=== PATIENT | female | born 1995 | race African-American/Black ===

== ENCOUNTER 2021-09-23 14:42 | Outpatient (CLI) | payer OTHER ==
--- NOTE | 2021-09-23 17:25 | Ultrasound Report ---
PROCEDURE: OB Detailed Eval INDICATIONS: SUPERVISION OF OUTSIDE/PRIOR DATING DATA: Last menstrual period (LMP): 04/30/2021. LMP-based estimated date of delivery (TERRIE): 02/04/2022. First dating scan (date and location): 09/23/2021. Estimated date of delivery (TERRIE) from first dating scan: 01/31/2022. The below data below was generated using the ultrasound TERRIE of 01/31/2022 TECHNIQUE: Real-time scanning was performed of the fetus, with image documentation and biometric measurements. Endovaginal scanning: Performed COMPARISON: None. FINDINGS: General: A single living intrauterine gestation is present. Presentation: Variable Placenta: Placental position is posterior, without previa. Amniotic fluid index: 18.9 cm cm, 5-24 cm normal. heart rate: 144 beats per minute. Maternal cervical canal: Closed and 3.3 cm long; normal length is 2.5 cm or more. biometrics: Biparietal diameter: 21 weeks 4 days Head circumference: 21 weeks 1 day Abdominal circumference: 2 weeks 0 day Femur length: 21 weeks 4 day Estimated gestational age from initial scan: not applicable. Composite gestational age from present scan: 21 weeks 3 days Estimated weight: 445 g. Measurement variability in biometric dating: +/- 10 days from 12-20 weeks gestation, +/- 2 weeks from 20-30 weeks gestation, +/- 3 weeks at 30 weeks gestation or later. Anatomic survey: Neuro: Ventricles are normal at less than 10 mm. Cisterna magna is normal at 3-11 mm. Cerebellum i s normal in size and morphology. Nuchal skin fold: Normal at less than 6 mm between 14 and 20 weeks gestational age. Face: Nose and lips, facial profile are normal. Spine: No evidence for spina bifida. Heart: 4-chambered heart is present, with normal ventricular outflow tracts. Diaphragm: Diaphragm is intact. Stomach: Left-sided stomach is present. Kidneys: No hydronephrosis. Normal is less than 5 mm in 2nd trimester, less than 7 mm in 3rd trimester. Cord: 3 vessel cord has orthotopic insertion. Bladder: Normal in size. Extremities: All 4 extremities are visualized. IMPRESSION: 1. Single living intrauterine with ultrasound estimated gestational age of 21 weeks 3 days. 2. Normal anatomic survey. Reviewed by: Rocio Redd MD, PhD on 09/23/2021 5:24 PM PDT Approved by: Rocio Redd MD, PhD on 09/23/2021 5:24 PM PDT Station ID: [id number]
== END 2021-09-23 14:43 | disposition home or self-care (01) ==
LOC: DI 14:42
PROVIDERS: ATTEND Obstetrics & Gynecology
DX: Z34.02 Encounter for supervision of normal first pregnancy, second trimester (principal)

== ENCOUNTER 2021-12-11 10:51 | Outpatient (CLI) | payer OTHER ==
[2021-12-11 11:05] VITALS: BP 121/59
[2021-12-11 11:32] LABS: BASOPHILS % (AUTO) 0.4 %; EOSINOPHILS # (AUTO) 0.2 10^3/uL (0.0-0.7); EOSINOPHILS % (AUTO) 1.9 %; HCT - HEMATOCRIT 34.3 % (37.0-47.0); HGB - HEMOGLOBIN 11.4 g/dL (12.0-16.0); LYMPHOCYTES # (AUTO) 1.9 10^3/uL (1.5-3.5); LYMPHOCYTES % (AUTO) 16.9 %; MEAN CORPUSCULAR HEMOGLOBIN 29.5 pg (27.0-31.0); MEAN CORPUSCULAR HGB CONC 33.2 g/dL (32.0-36.0); MEAN CORPUSCULAR VOLUME 88.9 fL (81.0-99.0); MEAN PLATELET VOLUME 10.3 fL (7.9-10.8); MONOCYTES # (AUTO) 0.9 10^3/uL (0.0-1.0); MONOCYTES % (AUTO) 8.1 %; NEUTROPHILS # (AUTO) 7.5 10^3/uL (1.5-6.6); NEUTROPHILS % (AUTO) 68.7 %; PLT - PLATELET COUNT 216 10^3/uL (130-450); RED BLOOD COUNT 3.86 10^6/uL (4.20-5.40); RED CELL DISTRIBUTION WIDTH 12.7 % (12.0-15.0); WHITE BLOOD COUNT 10.9 x10^3/uL (4.8-10.8)
[2021-12-11 12:28] LABS: BILIRUBIN,URINE NEGATIVE (NEGATIVE); GLUCOSE, URINE (UA) NEGATIVE (NEGATIVE); KETONES,URINE (UA) NEGATIVE (NEGATIVE); LEUKOCYTE ESTERASE, URINE NEGATIVE (NEGATIVE); NITRITE,URINE NEGATIVE (NEGATIVE); OCCULT BLOOD,URINE NEGATIVE (NEGATIVE); PROTEIN,URINE NEGATIVE (NEGATIVE); UROBILINOGEN,URINE 0.2 (NORMAL) E.U./dL (NORMAL)
[2021-12-11 12:30] LABS: CLARITY,URINE CLEAR (CLEAR)
[2021-12-11 12:36] LABS: BACTERIA,URINE Few /HPF (None Seen); RBC,URINE 0-5 /HPF (0-5); SQUAMOUS EPITHELIAL CELL,UR FEW Squamous (<= Few); WBC,URINE 0-3 /HPF (0-5)
--- NOTE | 2021-12-12 14:51 | PROVIDER PROGRESS NOTE ---
- HPI Chief Complaint: Other Current : Current EDU 02/04/22 Gestation 32 Weeks and 1 Days 2 Para 0 Vital Signs Temperature 37.2 C 12/11/21 11:01 Heart Rate 104 H 12/11/21 11:01 Respiratory Rate 20 12/11/21 11:01 Blood Pressure 121/59 L 12/11/21 11:01 Temperature 37.2 C 12/11/21 11:01 Heart Rate 104 H 12/11/21 11:01 Respiratory Rate 12/11/21 11:01 Blood Pressure 121/59 L 12/11/21 11:01 O2 Saturation - Procedures OB Procedure Performed: NST Diagnosis/Indication for NST: Other NST Procedure: NST Procedure Start Date 12/11/21 Start Time 11:00 Stop Time 12:00 Vibroacoustic Stimulation Used No Patient States Movement Yes - Plan Plan: Pt evaluated face to face: Karly presents to [facility] with concerns for back pain, body aches, and hot flashes. She states she feels sore in her lower back and sits for prolonged periods of time at her job which seems to make the pain worse. She states it is sharp shooting and it caused her to call out of work today. In addition she reports intermittent body aches that are usually on the tops of her thighs bilaterally. She states these pains seem to come and go and are not constant. Reports they usually occur with position changes. She reports vomiting yesterday which has resolved. She called out of work yesterday and today and they told her she needed to go get checked out to make sure the baby was fine. She denies vaginal bleeding, leakage of fluid or contractions. She reports +FM. She denies fever. She denies urinary symptoms. She did have a recent COVID exposure. NST performed 12/11/2021 NST read 12/11/2021 FHR baseline 140s, moderate variability, + accels, no decels No contractions appreciated via tocometry UA neg CBC WNL Covid PCR neg Encouraged use of maternnity support belt daily. Recommended child care team lead, massage, or accupuncture/pressure Reviewed normal discomforts of . Reassured by normal labs. Encouraged her to ambulate regularly at work - note provided to allow ambulation every 30 minutes. Pt released home with precautions. She denies further questions or concerns today. FINAL DIAGNOSIS: Back pain in
== END 2021-12-11 12:20 | disposition home or self-care (01) ==
LOC: WFO 10:51 → FBP 10:53 → WFO 12:20
PROVIDERS: ATTEND Nurse Practitioner Obstetrics & Gynecology
DX: O99.891 Other specified diseases and conditions complicating pregnancy (principal); M54.9 Dorsalgia, unspecified; Z20.822 Contact with and (suspected) exposure to COVID-19; Z3A.32 32 weeks gestation of pregnancy
CPT/HCPCS: 36415; 59025; 81001; 85025; 99212

== ENCOUNTER 2022-02-04 20:24 | Inpatient (IN) | payer OTHER ==
[2022-02-04] MEDS ORDERED: OXYTOCIN 10 UNIT/ML VIAL IM PRN (21:53)
[2022-02-04] MEDS ORDERED: SODIUM CHLORIDE FLUSH 0.9% 10 ML SYRINGE IVP PRN (21:53)
[2022-02-04] MEDS ORDERED: miSOPROStoL 200 MCG TABLET PR PRN (21:53)
[2022-02-04] MEDS ORDERED: TRANEXAMIC ACID IN NACL 1,000 MG/100 ML BAG IV PRN (21:53)
[2022-02-04] MEDS ORDERED: miSOPROStoL 200 MCG TABLET BC PRN (21:53)
[2022-02-04] MEDS ORDERED: lidocaine 1% 20 ML MDV ID PRN (21:53)
[2022-02-04] MEDS ORDERED: NIFEdipine 10 MG CAPSULE PO PRN (21:53)
[2022-02-04] MEDS ORDERED: OXYTOCIN/SODIUM CHLORIDE 500 ML IV PRN (21:53)
[2022-02-04] MEDS ORDERED: METHYLERGONOVINE 0.2 MG/ML VIAL IM PRN (21:53)
[2022-02-04] MEDS ORDERED: hydrALAZINE INJ 20 MG/ML VIAL IVP PRN ×2 (21:53)
[2022-02-04] MEDS ORDERED: CARBOPROST TROMETHAMINE 250 MCG/ML AMP IM PRN (21:53)
[2022-02-04] MEDS ORDERED: TERBUTALINE 1 MG/ML VIAL SUBQ PRN (21:53)
[2022-02-04] MEDS ORDERED: fentaNYL 100 MCG/2 ML VIAL IVP PRN (21:53)
[2022-02-04] MEDS ORDERED: LABETALOL 20 MG/4 ML SYRINGE IVP PRN ×3 (21:53)
[2022-02-04] MEDS ORDERED: SODIUM CHLORIDE FLUSH 0.9% 10 ML SYRINGE IVP SCH (22:00)
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
[2022-02-04 22:21] LABS: BASOPHILS % (AUTO) 0.2 %; EOSINOPHILS # (AUTO) 0.2 10^3/uL (0.0-0.7); EOSINOPHILS % (AUTO) 1.2 %; HCT - HEMATOCRIT 35.8 % (37.0-47.0); HGB - HEMOGLOBIN 11.6 g/dL (12.0-16.0); LYMPHOCYTES # (AUTO) 1.5 10^3/uL (1.5-3.5); LYMPHOCYTES % (AUTO) 12.2 %; MEAN CORPUSCULAR HEMOGLOBIN 28.3 pg (27.0-31.0); MEAN CORPUSCULAR HGB CONC 32.4 g/dL (32.0-36.0); MEAN CORPUSCULAR VOLUME 87.3 fL (81.0-99.0); MEAN PLATELET VOLUME 11.2 fL (7.9-10.8); MONOCYTES # (AUTO) 1.1 10^3/uL (0.0-1.0); MONOCYTES % (AUTO) 8.9 %; NEUTROPHILS # (AUTO) 9.4 10^3/uL (1.5-6.6); NEUTROPHILS % (AUTO) 76.3 %; PLT - PLATELET COUNT 197 10^3/uL (130-450); RED CELL DISTRIBUTION WIDTH 13.9 % (12.0-15.0); WHITE BLOOD COUNT 12.3 x10^3/uL (4.8-10.8)
[2022-02-04 22:38] LABS: CREATININE,URINE 45.7 mg/dL; PROTEIN/CREATININE RATIO,URINE 0.2 (<=0.2)
[2022-02-04] MEDS ORDERED: LACTATED RINGERS 1,000 ML ONE (22:42)
[2022-02-04] MEDS ORDERED: LACTATED RINGERS 500 ML IV ONE (22:43)
[2022-02-04] MEDS ORDERED: ROPIVACAINE 0.2% 200 MG/100 ML BAG EP ONE (23:11)
[2022-02-04] MEDS ORDERED: NALOXONE 0.4 MG/ML VIAL IVP PRN (23:56)
[2022-02-04] MEDS ORDERED: METOCLOPRAMIDE 10 MG/2 ML VIAL IVP PRN (23:56)
[2022-02-04] MEDS ORDERED: diphenhydrAMINE INJ 50 MG/ML VIAL IVP PRN (23:56)
[2022-02-04] MEDS ORDERED: ePHEDrine 50 MG/ML VIAL IVP PRN (23:56)
[2022-02-04] MEDS ORDERED: NALBUPHINE 10 MG/ML AMP IVP PRN (23:56)
[2022-02-04] MEDS ORDERED: ROPIVACAINE 0.2% 200 MG/100 ML BAG EP PRN (23:56)
[2022-02-04] MEDS ORDERED: ONDANSETRON 4 MG/2 ML VIAL IVP PRN (23:56)
--- NOTE | 2022-02-05 00:03 | ANESTHESIA ---
Pre-Anesthesia VS, & Labs - Diagnosis active labor pain - Procedure labor epidural Vital Signs: Temp Pulse Resp BP Pulse Ox O2 Flow Rate 37.1 C 139 H 20 146/86 H 02/04/22 22:24 02/04/22 21:01 02/04/22 21:01 02/04/22 21:01 Height: 5 ft 5 in Weight (kg): 78.925 kg Body Mass Index: 28.9 BMI Classification: Overweight - NPO Other (eating upon arrival to preop pt at 2315) - Is Patient ?: Yes - Lab Results Current Lab Results: Laboratory Tests 02/04/22 22:00: Blood Type A POSITIVE, Antibody Screen NEGATIVE 02/04/22 22:00: WBC 12.3 H, RBC 4.10 L, Hgb 11.6 L, Hct 35.8 L, MCV 87.3, MCH 28.3, MCHC 32.4, RDW 13.9, Plt Count 197, MPV 11.2 H, Neut # (Auto) 9.4 H, Lymph # (Auto) 1.5, Holmes # (Auto) 1.1 H, Eos # (Auto) 0.2, Baso # (Auto) 0.0, Absolute Nucleated RBC 0.00, Nucleated RBC % 0.0 Fish Bones: 02/04/22 22:00 Home Medications and Allergies Active Medications Carboprost Tromethamine (Carboprost Tromethamine 250 Mcg/Ml Amp) 250 mcg IM .ONCE PRN PRN Reason: Hemorrhage Diphenhydramine HCl (Diphenhydramine Inj 50 Mg/Ml Vial) 12.5 - 25 mg IVP Q6HR PRN PRN Reason: ITCHING Ephedrine Sulfate (Ephedrine 50 Mg/Ml Vial) 5 mg IVP Q5M PRN PRN Reason: For SBP<100;give until SBP>100 Fentanyl (Fentanyl 100 Mcg/2 Ml Vial) 50 mcg IVP Q1H PRN PRN Reason: Severe Pain (score 7-10) Hydralazine HCl (Hydralazine Inj 20 Mg/Ml Vial) 5 - 10 mg IVP Q20M PRN; Protocol PRN Reason: SBP> or= 160 OR DBP> or= 110 Hydralazine HCl (Hydralazine Inj 20 Mg/Ml Vial) 10 mg IVP .ONCE PRN; Protocol PRN Reason: SBP> or= 160 OR DBP> or= 110 Oxytocin/Sodium Chloride (Pitocin/Sodium Chloride) 500 mls @ 999 mls/hr IV PRN PRN; Protocol PRN Reason: POST- HEMORR PREVENTION Tranexamic Acid (Tranexamic 1,000 Mg/100ml-Nacl) 1,000 mg in 100 mls @ 600 mls/hr IV Q30M PRN PRN Reason: EBL >1200mL and within 3hr Ropivacaine (Naropin 0.2%) 200 mg in 100 mls @ 0 mls/hr EP PRN PRN; Protocol PRN Reason: PAIN Labetalol HCl (Labetalol 20 Mg/4 Ml Syringe) 20 - 80 mg IVP Q10M PRN; Protocol PRN Reason: SBP> or= 160 OR DBP> or= 110 Labetalol HCl (Labetalol 20 Mg/4 Ml Syringe) 20 mg IVP .ONCE PRN; Protocol PRN Reason: SBP> or= 160 OR DBP> or= 110 Labetalol HCl (Labetalol 20 Mg/4 Ml Syringe) 20 - 40 mg IVP Q10M PRN; Protocol PRN Reason: SBP> or= 160 OR DBP> or= 110 Lidocaine HCl (Lidocaine 1% 20 Ml Mdv) 20 ml ID .ONCE PRN PRN Reason: PERINEAL REPAIR Stop: 02/07/22 21:53 Methylergonovine Maleate (Methylergonovine 0.2 Mg/Ml Vial) 0.2 mg IM .ONCE PRN PRN Reason: Hemorrhage Metoclopramide HCl (Metoclopramide 10 Mg/2 Ml Vial) 10 mg IVP Q6HR PRN PRN Reason: Nausea / Vomiting Misoprostol (Misoprostol 200 Mcg Tablet) 600 mcg BC .ONCE PRN PRN Reason: Hemorrhage Misoprostol (Misoprostol 200 Mcg Tablet) 800 mcg RI .ONCE PRN PRN Reason: Hemorrhage Nalbuphine HCl (Nalbuphine 10 Mg/Ml Amp) 2.5 - 5 mg IVP Q4H PRN PRN Reason: ITCHING Naloxone HCl (Naloxone 0.4 Mg/Ml Vial) 0.1 mg IVP Q2M PRN PRN Reason: RR<8 Nifedipine (Nifedipine 10 Mg Capsule) 10 - 20 mg PO Q20M PRN; Protocol PRN Reason: SBP> or= 160 OR DBP> or= 110 Ondansetron HCl (Ondansetron 4 Mg/2 Ml Vial) 4 mg IVP Q6HR PRN PRN Reason: Nausea / Vomiting Oxytocin (Oxytocin 10 Unit/Ml Vial) 10 unit IM .ONCE PRN PRN Reason: Step One if no IV access. Sodium Chloride (Sodium Chloride Flush 0.9% 10 Ml Syringe) 10 ml IVP PRN PRN PRN Reason: NEEDED PER PROVIDER ORDERS Sodium Chloride (Sodium Chloride Flush 0.9% 10 Ml Syringe) 10 ml IVP Q8H ELADIA Terbutaline Sulfate (Terbutaline 1 Mg/Ml Vial) 0.25 mg SUBQ .ONCE PRN PRN Reason: Tachystole Allergies/Adverse Reactions: Allergies Allergy/AdvReac Type Severity Reaction Status Date / Time No Known Drug Allergies Allergy Verified 12/11/21 11:05 Anes History & Medical History - Anesthetic History Anesthesia Complications: reports: No previous complications Family history of Anesthesia Complications: Denies Family history of Malignant Hyperthermia: Denies - Medical History Cardiovascular: reports: None Pulmonary: reports: None Gastrointestinal: reports: None Urinary: reports: None Neuro: reports: None Endocrine/Autoimmune: reports: None Blood Disorders: reports: None Skin: reports: None Smoking Status: Never smoker - Obstetrical History : 2 Parity: 0 Events: reports: None Complications: reports: None Exam General: Alert, Oriented x3, Cooperative Dental: WNL Mouth Openin Fingerbreadth Neck Mobility: Normal Mallampati classification: III Thyromental Distance: 4-6 cm Respiratory: Lungs clear Cardiovascular: Regular rate Plan Anesthesia Type: Epidural Consent for Procedure(s) Verified and Reviewed: Yes Code Status: Attempt Resuscitation ASA classification: 2-Mild systemic disease Is this case an emergency?: No
[2022-02-05 01:50] LABS: ALBUMIN 2.8 g/dL (3.2-5.5); ALBUMIN/GLOBULIN RATIO 0.8 (1.0-2.2); BILIRUBIN,TOTAL 0.7 mg/dL (0.2-1.0); CALCIUM 9.2 mg/dL (8.5-10.3); CREATININE 0.8 mg/dL (0.4-1.0); POTASSIUM 4.2 mmol/L (3.5-5.0); TOTAL PROTEIN 6.4 g/dL (6.7-8.2)
[2022-02-05] MEDS ORDERED: LACTATED RINGERS 1,000 ML ONE (03:46)
[2022-02-05] MEDS ORDERED: LACTATED RINGERS 1,000 ML IV SCH ×4 (03:48→10:00)
--- NOTE | 2022-02-05 04:24 | PROVIDER PROGRESS NOTE ---
Labor Progress Note - Uterine Monitoring Uterine Monitoring Mode: positive: External toco Contraction Frequency (min/apart): 2-5 Contraction Intensity: positive: Moderate Uterine Resting Tone: positive: Soft - Monitoring Monitor Mode: positive: External ultrasound Heart Rate Baseline: 140 Heart Rate Variability: positive: Moderate (6-25 bmp) Accelerations: positive: Absent Decelerations: positive: Late, Recurrent (>50% x20 min) Strip Review: positive: Category II - Vaginal Exam Dilation (in cm): 6 Effacement (%): 100 Station: -1 - Labor Progress Note Labor Progress Note/Additional Text: S: Pt comfortable with epidural and rating pain 0/10. She has been able to get very little rest secondary to need to move and rotate her with heart rate decelerations. She is supported by partner and 2 friends. Her mood is good. O: FHR baseline 145, moderate variability, no accels, recurrent late deceleratio ns Contractions palpate moderate every 2-5 minutes with soft resting tone. SVE 6/100/-1 (+scalp stimulation on exam) AROM moderate amount of lightly meconium stained amniotic fluid x 5 hrs S/p IV LR fluid bolus x 3 and maternal O2 A: 26yo @ 40.1wks gestation Active labor FHR Category II GBS neg P: We discussed risk vs benefit of continued labor efforts and my recommendation to decrease her rate of epidural infusion secondary to late heart rate decelerations that correspond to the programmed boluses of the epidural pump. We also discussed that if the decreased rate of infusion does not work to improve heart rate that I would contact the food operations manager physician who would evaluate the appropriateness of a delivery and pt is in agreement with that plan. Continuous monitoring Monitor x 30 minutes and if decelerations continue, will call food operations manager physician to evaluate for delivery.
[2022-02-05] MEDS ORDERED: OXYTOCIN 10 UNIT/ML VIAL ONE ×2 (07:39→08:56)
[2022-02-05] MEDS ORDERED: PHENYLEPHRINE 10 MG/ML VIAL ONE (07:42)
[2022-02-05] MEDS ORDERED: fentaNYL 100 MCG/2 ML VIAL ONE (07:55)
--- NOTE | 2022-02-05 07:55 | PROVIDER PROGRESS NOTE ---
Labor Progress Note - Uterine Monitoring Uterine Monitoring Mode: positive: External toco Contraction Frequency (min/apart): 2-6 Contraction Intensity: positive: Strong Uterine Resting Tone: positive: Soft - Monitoring Monitor Mode: positive: External ultrasound Heart Rate Baseline: 180 Heart Rate Variability: positive: Minimal (0-5 bpm) Accelerations: positive: Absent Decelerations: positive: Late, Recurrent (>50% x20 min) Strip Review: positive: Category III - Vaginal Exam Dilation (in cm): 6 Effacement (%): 100 Station: -1 - Labor Progress Note Labor Progress Note/Additional Text: S: Pt feeling comfortable with her epidural. Accepting of delivery as recommended. O: FHR baseline 180s with 37.9 temp Recurrent late decelerations with minimal variability Contractions palpate strong every 2-5 minutes with soft resting tone. SVE 5-6/100/-1 with caput to 0 A: 26yo @ 40.1wks gestation intolerance of labor GBS neg Light meconium since AROM P: yardage caller physician notified and presence requested for evaluate for delivery. Dr. Silva assuming care of patient at this time.
[2022-02-05] MEDS ORDERED: ePHEDrine 50 MG/ML VIAL IVP ONE (07:56)
[2022-02-05] MEDS ORDERED: MORPHINE PF 5 MG/10 ML VIAL ONE (07:57)
[2022-02-05] MEDS ORDERED: AZITHROMYCIN INJ 500 MG in SODIUM CHLORIDE 0.9% 250 ML IV SCH (08:00)
--- NOTE | 2022-02-05 08:04 | HISTORY & PHYSICAL EXAMINATION ---
Admit History - : 2 : 1 Care: positive: [facility] Risk/History: positive: None Complications This : positive: None Smoking Status: Never smoker - Other Maternal History Other Maternal History: HPI: 26-year-old -0-1-0 at 40 weeks 1 day gestation. She has been laboring overnight, but developed a worsening category 2 tracing. I was called by SAMEER Dolan to assess after she felt the patient likely need a section. All other symptoms reviewed and were negative except per HPI. Course Transfer care from [facility] to [facility]. [facility] 27 [facility]. PMH Depression PSH No prior surgeries OB History G2P 0010 1 previous spontaneous SH Denies tobacco, ago, drugs Family History Mother: Depression, hypertension Maternal aunt: Epilepsy Maternal grandmother: Hypertension Sisters: Hypertension Allergies No known drug allergies Medications vitamins Physical exam: General: Alert, oriented, no acute distress Head: Normal cephalic atraumatic Eyes: PERRLA, extraocular motions intact. Respiratory: Normal rate of respiration. No accessory muscle use, normal respiratory effort. Cardiovascular: Regular rate and rhythm Abdomen: Gravid, nontender, nondistended Extremities: Limited movement due to epidural Neuro: Oriented x3. Normal movements Psych: Appropriate mood and affect. Normal judgment and insight SVE: 5/90/-1 FHT: 180 beats minute baseline, moderate variability, no accelerations, late decelerations. Category 2 [place]pin: 2-5 Plan 26-year-old -0-1-0 at 40 weeks 1 day gestation with a category 2 tracing remote from delivery 1. Category 2 tracing remote from delivery - section was recommended. Risks, benefits and alternatives were discussed including but not limited to infection, bleeding that may require blood products or hysterectomy for life saving measures, injury to surrounding organs including but not limited to bowel, bladder, ureters, tubes and ovaries and/or the baby. Should injury occur it could require longer/additional surgery to repair. The patient stated understanding and desired to proceed. All questions were answered posed by patient. -Plan for primary low-transverse section -2 g cefazolin and 500 mg azithromycin for surgical prophylaxis 2. 40 weeks gestation Meds/Allgy - Allergies Allergies/Adverse Reactions: Allergies Allergy/AdvReac Type Severity Reaction Status Date / Time No Known Drug Allergies Allergy Verified 12/11/21 11:05 Physical - Abdominal Exam Vital Signs: Temp Pulse Resp BP Pulse Ox O2 Flow Rate 98.2 F 132 H 18 104/53 L 100 02/05/22 01:01 02/05/22 01:01 02/05/22 01:01 02/05/22 01:01 02/05/22 01:01 Plan for Labor - Plan For Labor I expect patient to be DC'd or transferred within 96 hours.: Yes
[2022-02-05] MEDS ORDERED: MORPHINE PF 5 MG/10 ML VIAL IT ONE (08:10)
[2022-02-05] MEDS ORDERED: fentaNYL 100 MCG/2 ML VIAL IT ONE (08:10)
[2022-02-05] MEDS ORDERED: ceFAZolin 1 GM VIAL ONE (08:15)
[2022-02-05] MEDS ORDERED: CEFAZOLIN 2G/50ML 0.9% NS 2 GM/50 ML BAG IV ONE (08:30)
[2022-02-05] MEDS ORDERED: ONDANSETRON 4 MG/2 ML VIAL ONE (08:49)
[2022-02-05] MEDS ORDERED: KETOROLAC 30 MG/ML VIAL ONE (08:50)
[2022-02-05] MEDS ORDERED: ONDANSETRON 4 MG/2 ML VIAL IVP PRN ×2 (08:51→08:52)
[2022-02-05] MEDS ORDERED: ATROPINE ABBOJECT 1 MG/10 ML SYRINGE IVP PRN (08:51)
[2022-02-05] MEDS ORDERED: NALOXONE 0.4 MG/ML VIAL IVP PRN ×2 (08:51→08:52)
[2022-02-05] MEDS ORDERED: METOCLOPRAMIDE 10 MG/2 ML VIAL IVP PRN ×2 (08:51→08:52)
[2022-02-05] MEDS ORDERED: fentaNYL 100 MCG/2 ML VIAL IVP PRN (08:51)
[2022-02-05] MEDS ORDERED: HYDROmorphone 0.5 MG/0.5 ML SYRINGE IVP PRN (08:51)
[2022-02-05] MEDS ORDERED: ePHEDrine 50 MG/ML VIAL IVP PRN ×2 (08:51→08:52)
[2022-02-05] MEDS ORDERED: MORPHINE 2 MG/ML CARPUJECT IVP PRN (08:51)
[2022-02-05] MEDS ORDERED: NALBUPHINE 10 MG/ML AMP IVP PRN (08:52)
[2022-02-05] MEDS ORDERED: diphenhydrAMINE INJ 50 MG/ML VIAL IVP PRN (08:52)
[2022-02-05] MEDS: KETOROLAC 30 MG/ML VIAL IVP SCH ×3 (09:00→21:19)
[2022-02-05] MEDS ORDERED: ACETAMINOPHEN 1,000 MG/100 ML 1,000 MG/100 ML BAG IV ONE (09:01)
[2022-02-05] MEDS ORDERED: LIDOCAINE-PF 2% 10 ML AMP SUBQ ONE (09:03)
[2022-02-05] MEDS ORDERED: ROPIVACAINE 0.5% PF 20 ML VIAL ONE (09:03)
[2022-02-05] MEDS ORDERED: LACTATED RINGERS 1,000 ML IV ONE (09:16)
[2022-02-05] MEDS ORDERED: OXYTOCIN/SODIUM CHLORIDE 500 ML IV PRN (09:26)
[2022-02-05] MEDS ORDERED: ONDANSETRON ODT 4 MG TABLET TL PRN (09:26)
--- NOTE | 2022-02-05 09:29 | OPERATIVE REPORT ---
Operative Report - General Admit Date: 02/04/22 Procedure Date: 02/05/22 Planned Procedure: Primary low-transverse section Pre-Op Diagnosis: Category 2 tracing remote from delivery, 40 weeks gestation Procedure Performed: Primary low-transverse section Post Op Diagnosis: Status post primary low-transverse section - Procedure Note Primary Surgeon: Maicol Silva MD Secondary Surgeon: SAMEER Dolan Anesthesia Provider: Marquez Mai CRNA Anesthesia Technique: Spinal Pathology: None Estimated Blood Loss (mL): 750 Complications: None - Other Other Information/Narrative: Patient came in in spontaneous labor, but throughout the evening began having late decelerations then tachycardia. I was asked by SAMEER Dolan to drug counselor the patient. Due to category 2 tracing remote from delivery, section was recommended. Risks, benefits and alternatives were discussed including but not limited to infection, bleeding that may require blood products or hysterectomy for life saving measures, injury to surrounding organs including but not limited to bowel, bladder, ureters, tubes and ovaries and/or the baby. S hould injury occur it could require longer/additional surgery to repair. The patient stated understanding and desired to proceed. All questions were answered posed by patient. Prior to being taken to the OR, 2 grams of cefazolin IV and 500 mg azithromycin were administered. The patient was taken to the operating room where regional anesthesia was found to be adequate. She was then prepared and draped in the usual sterile fashion in the dorsal supine position with a leftward tilt displacing the uterus. Benson was draining to gravity. SCDs were on bilateral lower extremities. A pfannenstiel skin incision was then made with the scalpel and carried through to the underlying layer of fascia. The fascia was incised in the midline and the incision extended laterally with the Hurtado scissors. The superior aspect of the facial incision was then grasped with the Jesse clamps, elevated and the underlying rectus muscles dissected off sharply. Attention was then turned to the inferior aspect of this incision which in a similar fashion was grasped, elevated with the Jesse clamps and the rectus muscle dissected off sharply. The rectus muscles were in the midline. The peritoneum identified, grasped with the pick-ups and entered sharply with the Metzenbaum scissors. The peritoneal incision was then extended superiorly and inferiorly with good visualization of the bladder. The bladder blade was inserted. The vesicouterine peritoneum was identified, grasped with the pick-ups, and entered sharply with Metzenbaum scissors. This incision was then extended laterally and the bladder flap created digitally. The bladder blade was reinserted. The lower uterine segment was identified and incised in a transverse fashion with the scalpel. The uterine incision was then extended bluntly laterally. She had already had rupture of membranes with light meconium. The bladder blade was removed. The fetus was in a cephalic presentation. The infants head delivered atraumatically. The anterior shoulders were delivered followed by the posterior shoulders then the remainder of the body. The infants mouth and nose were bulb suctioned. The umbilical cord was clamped times two and cut. The was handed to the pediatric team. The placenta was removed with gentle traction. Oxytocin were added to IVF and allowed to run freely. The uterus was exteriorized and cleared of all clots and debris. The uterine incision was inspected and found to be without any extensions and was repaired with 0 Vicryl in a running, locked fashion. A second imbricating layer was performed. 2 small areas of bleeding were closed with 2 [id number] stitches of 0 Vicryl. Upon inspection, the repaired hysterotomy was found to be hemostatic. The uterus was firm and returned to the abdomen. The gutters were cleared of all clots and debris. The fascia was reapproximated with 0 Vicryl in a running fashion. The skin was closed in a subcuticular fashion with 4-0 Monocryl. The patient tolerated the procedure well. Sponge, lap and needle counts were correct times three. The patient was taken to the recovery room in stable condition. I appreciate the assistance of SAMEER Dolan during this procedure, and the assistance in retraction, visualization, dissection, and overall assistance during the case were instrumental to the patient's wellbeing.
--- NOTE | 2022-02-05 09:46 | ANESTHESIA POST OP EVALUATION ---
Anesthesia Post Eval - Post Anesthesia Eval Vitals: Last Vital Signs Temp 37.7 C 02/05/22 09:40 Pulse 113 H 02/05/22 09:40 Resp 16 02/05/22 09:40 BP 116/67 02/05/22 09:40 Pulse Ox 100 02/05/22 09:40 O2 Flow Rate CV Function Including HR & BP: Stable Pain Control: Satisfactory Nausea & Vomiting: Negative Mental Status: Baseline Respiratory Status: Airway Patent Hydration Status: Satisfactory Anesthesia Complications: None
[2022-02-05] MEDS: oxyCODONE 5 MG TABLET PO PRN ×3 (10:39→21:20)
[2022-02-05] MEDS: DOCUSATE SODIUM 100 MG CAPSULE PO SCH ×2 (10:39→21:20)
[2022-02-05] MEDS: SODIUM CHLORIDE FLUSH 0.9% 10 ML SYRINGE IVP PRN ×2 (15:13→21:19)
[2022-02-05] MEDS ORDERED: SODIUM CHLORIDE FLUSH 0.9% 10 ML SYRINGE IVP SCH (17:00)
[2022-02-05] MEDS: ACETAMINOPHEN 500 MG TABLET PO SCH (17:14)
[2022-02-05] MEDS: SIMETHICONE CHEW 80 MG TABLET PO PRN (21:19)
[2022-02-06] MEDS: ACETAMINOPHEN 500 MG TABLET PO SCH ×4 (01:00→22:29)
[2022-02-06] MEDS: oxyCODONE 5 MG TABLET PO PRN ×5 (01:32→19:59)
[2022-02-06] MEDS: KETOROLAC 30 MG/ML VIAL IVP SCH (03:08)
[2022-02-06 04:09] LABS: HBsAG SCREEN Negative (Negative); HCV AB <0.1 s/co ratio (0.0-0.9)
[2022-02-06 05:25] LABS: BASOPHILS % (AUTO) 0.2 %; EOSINOPHILS # (AUTO) 0.1 10^3/uL (0.0-0.7); EOSINOPHILS % (AUTO) 0.9 %; HCT - HEMATOCRIT 28.7 % (37.0-47.0); HGB - HEMOGLOBIN 9.1 g/dL (12.0-16.0); LYMPHOCYTES % (AUTO) 13.3 %; MEAN CORPUSCULAR HGB CONC 31.7 g/dL (32.0-36.0); MEAN CORPUSCULAR VOLUME 88.3 fL (81.0-99.0); MEAN PLATELET VOLUME 10.2 fL (7.9-10.8); MONOCYTES # (AUTO) 1.4 10^3/uL (0.0-1.0); MONOCYTES % (AUTO) 9.6 %; NEUTROPHILS # (AUTO) 11.1 10^3/uL (1.5-6.6); NEUTROPHILS % (AUTO) 74.7 %; PLT - PLATELET COUNT 177 10^3/uL (130-450); RED BLOOD COUNT 3.25 10^6/uL (4.20-5.40); RED CELL DISTRIBUTION WIDTH 14.2 % (12.0-15.0); WHITE BLOOD COUNT 14.9 x10^3/uL (4.8-10.8)
[2022-02-06 08:10] LABS: RPR Non Reactive (Non Reactive)
--- NOTE | 2022-02-06 08:50 | PROVIDER PROGRESS NOTE ---
Subjective - Prog Note Date Prog Note Date: 02/06/22 - Subjective Pt reports feeling: Improved Subjective: Subjective Patient reports she is doing well. Lochia appropriate. Denies heavy bleeding. Ambulating. Pelvic and abdominal pain well-controlled. Tolerating oral intake. Diet: Regular. Voiding without difficulty, catheter removed last night. Passing flatus. Denies BM. Patient is bonding with baby in room Breast feeding going well. Some sore nipples, but overall going well Denies feeling lightheaded, dizzy or excessively fatigued. Objective General: Alert, oriented, no apparent distress. Cardiovascular: Regular rate. Regular rhythm. Lungs: No increased work of breathing. Abdomen: Uterus firm. Below umbilicus. No guarding or rebound. Incision: Clean, dry, and intact. Bandage removed today Extremities: Soft, no cords palpated. Labs: Hemoglobin from 11.6-9.1 Assessment and Plan day 1. -Routine care -Anticipate discharge tomorrow Status post primary low-transverse section -Routine postoperative care Objective - Vital Signs/Intake & Output Vital Signs: Vital Signs x48h Temp Pulse Resp BP BP Pulse Ox 02/06/22 08:00 207.7 F H 85 18 116/59 L 100 02/06/22 05:22 98.1 F 75 16 110/61 100 Intake & Output: Intake & Output 02/03/22 02/04/22 02/05/22 02/06/22 23:59 23:59 23:59 23:59 Intake Total 500 1980 Output Total 3750 550 Balance 500 -4040 -550 - Lab Results Fish Bones: 02/06/22 05:20 02/04/22 22:00 Other Labs: Lab Results x24hrs 02/06/22 02/04/22 02/04/22 Range/Units 05:20 22:00 22:00 WBC 14.9 H (4.8-10.8) x10^3/uL RBC 3.25 L (4.20-5.40) 10^6/uL Hgb 9.1 L (12.0-16.0) g/dL Hct 28.7 L (37.0-47.0) % MCV 88.3 (81.0-99.0) fL MCH 28.0 (27.0-31.0) pg MCHC 31.7 L (32.0-36.0) g/dL RDW 14.2 (12.0-15.0) % Plt Count 177 (130-450) 10^3/uL MPV 10.2 (7.9-10.8) fL Neut # (Auto) 11.1 H (1.5-6.6) 10^3/uL Lymph # (Auto) 2.0 (1.5-3.5) 10^3/uL [place] # (Auto) 1.4 H (0.0-1.0) 10^3/uL Eos # (Auto) 0.1 (0.0-0.7) 10^3/uL Baso # (Auto) 0.0 (0.0-0.1) 10^3/uL Absolute Nucleated RBC 0.00 x10^3/uL Nucleated RBC % 0.0 /100WBC RPR Non Reactive (Non Reactive) Hep Bs Antigen Negative (Negative) Hepatitis C Antibody <0.1 (0.0-0.9) s/co ratio Hepatitis C Interp Comment (.)
[2022-02-06 09:09] LABS: HIV SCREEN 4TH GENERATION Non Reactive (Non Reactive)
[2022-02-06] MEDS: SIMETHICONE CHEW 80 MG TABLET PO PRN ×2 (09:33→17:27)
[2022-02-06] MEDS: IBUPROFEN 600 MG TABLET PO SCH ×3 (09:33→23:35)
[2022-02-06] MEDS: DOCUSATE SODIUM 100 MG CAPSULE PO SCH ×2 (09:33→22:29)
[2022-02-06] MEDS ORDERED: polyethylene glycoL 3350 17 GM PACKET PO PRN (20:00)
[2022-02-07] MEDS: oxyCODONE 5 MG TABLET PO PRN ×3 (02:15→10:22)
[2022-02-07] MEDS: ACETAMINOPHEN 500 MG TABLET PO SCH (06:09)
[2022-02-07] MEDS: IBUPROFEN 600 MG TABLET PO SCH ×2 (06:10→12:56)
[2022-02-07] MEDS: DOCUSATE SODIUM 100 MG CAPSULE PO SCH (10:22)
[2022-02-07] MEDS: SIMETHICONE CHEW 80 MG TABLET PO PRN (10:26)
[2022-02-07 10:39] VITALS: BP 111/58
--- NOTE | 2022-02-07 12:41 | Discharge Plan ---
Discharge Plan Problem Reviewed?: Yes Disposition: Home, Self Care Condition: Good Prescriptions: oxyCODONE [Roxicodone] 5 mg PO Q4HR PRN 3 Days #14 tab PRN Reason: Pain Diet: Regular Activity Restrictions: No Restrictions Shower Restrictions: No (May shower) Driving Restrictions: Yes (No driving while taking oxycodone) Weight Bearing: Full Weight Instruction Topics: , Depression Additional Instructions or Follow Up instructions: Follow up with MANOJ Schwartz as scheduled 02/11. May follow up with [facility] as needed. No Smoking: If you smoke, Please STOP! Call for help. Follow-up with: Lana Phillips CNM, ARNP [Provider Admit Priv/Credential] -
--- NOTE | 2022-02-07 14:04 | Labor Flowsheet ---
Labor Flowsheet Datetime Report Generated by CPN: 02/07/2022 14:04 Datetime: 02/05/2022 07:50 COMMUNICATION Communication: RN at Bedside; Provider at Bedside Notification Reason: Other Datetime: 02/05/2022 07:49 Pitocin Checklist: At Least 1 Acceleration of 15 bpm x 15 Seconds in 30 Minutes or Adequate Variabi lity Contraction Comments: patient cannot feel them she has an epiduirtal Actions for Decelerations: IV Bolus Datetime: 02/05/2022 07:47 Communication Comments: uop = 75 prior to c section Datetime: 02/05/2022 07:46 VITAL SIGNS NBP Sys/Lottie/Mean (mmHg): 130 : 83 : 91 Pulse: 121 LaborFlag: Labor Datetime: 02/05/2022 07:42 Vaginal Exam Comments: Per patient request Datetime: 02/05/2022 07:37 Monitor Interventions for UA: Peck Adjusted Resting Tone IUP (mmHg): soft Intensity IUP (mmHg): firm Datetime: 02/05/2022 07:34 Patient Position/Activity: Left Extreme Patient Care Comments: at this time peanut is removed and patient position change to left tilt Datetime: 02/05/2022 07:31 Monitor Interventions for FHR: Ultrasound Adjusted Datetime: 02/05/2022 07:30 FHR Baseline Changes: Tachycardia PATIENT CARE Oxygen Method: Room Air Datetime: 02/05/2022 07:29 Temperature (C): 37.9 MATERNAL ASSESSMENT Breath Sounds, Left: Clear and Equal Breath Sounds, Right: Clear and Equal Datetime: 02/05/2022 07:25 Stage of : Labor Effacement (%): 90 Station: -1 Exam by: Marlys Provider Reviewed Strip: Yes Provider Notified (Name): DFr. Ricardo Datetime: 02/05/2022 07:24 Hygiene: Hannah Care I/O Interventions: NPO Datetime: 02/05/2022 07:00 SpO2 (%): 100 Datetime: 02/05/2022 06:15 UTERINE ACTIVITY Monitor Mode: External Frequency (min): 2.5-4 Quality: Strong Duration (sec): 60-90 Pattern: Normal: <= 5 Contractions in 10 Minutes Resting Tone (Palpate): Relaxed ASSESSMENT A Monitor Mode: External US FHR Baseline Rate : 150 Variability: Moderate 6-25 bpm Accelerations: None Decelerations: None Category: Category I Datetime: 02/05/2022 06:03 VAGINAL EXAM Dilatation (cm): 6.0 Datetime: 02/05/2022 05:45 Comments: possible prolonged decel however unable to determine due to coincidence with maternal hea rt rate Datetime: 02/05/2022 04:33 Respirations: 18 Temperature Route: Oral PAIN Pain Scale: 0 Pain Presence: None/Denies Datetime: 02/05/2022 04:16 Vital Sign Comments: pt shaking during bp Datetime: 02/05/2022 04:07 Vaginal Bleeding: Small Datetime: 02/05/2022 04:05 Anesthesia Comments: Clarita RETREAD OPERATOR at the bedside Datetime: 02/05/2022 03:43 Strip Reviewed by: CN/RNC Spear Datetime: 02/05/2022 02:41 Membranes Ruptured Date/Time: 02/05/2022 00:03 Datetime: 02/05/2022 01:26 Membrane Status: Ruptured Amniotic Fluid Color: Light Meconium Anesthesia Level Check: T10- Umbilicus Datetime: 02/05/2022 00:03 Membranes Rupture Method: Artificial Amniotic Fluid Amount: Small Datetime: 02/04/2022 23:50 Epidural Procedure: Completed Epidural Procedure Other: Pump Started Datetime: 02/04/2022 23:25 ANESTHESIA Anesthesia Plans: Epidural Epidural Positioning: Sitting Datetime: 02/04/2022 22:42 MEDICATIONS Medication Comments: Started using nitrous oxide during contractions
--- NOTE | 2022-02-07 22:30 | DISCHARGE SUMMARY ---
"Discharge Summary Admit Date: 02/04/22 Discharge Date: 02/07/22 Discharging Provider: Michelle Alvarez DO Code Status: Attempt Resuscitation [email or web address]NOS[facility] Admission Diagnoses: 26yo admitted at 40w in active labor GBS positive - HPI History of Present Illness: 26yo admitted at 40w in active labor 02/04. care with Lana Phillips CNM. uncomplicated. GBS positive. - CONSULTS | PROCEDURES Consultations: Anesthesia, OBGYN Procedures: Epidural Primary section AROM - HOSPITAL COURSE Hospital Course: 26yo admitted at 40w in active labor 02/04. care with Lana Phillips CNM. uncomplicated. GBS positive. She received an epidural. AROM, meconium. Category 2 tracing. Decision made for PCD due to NRFHT and remote from delivery. Uncomplicated PCD, see operative notes. She recovered well and meets criteria for discharge today on POD#2. - ALLERGIES Allergies/Adverse Reactions: Allergies Allergy/AdvReac Type Severity Reaction Status Date / Time No Known Drug Allergies Allergy Verified 12/11/21 11:05 - MEDICATIONS Home Medications: Ambulatory Orders Medication Instructions Recorded Confirmed Acetaminophen [Tylenol] 1,000 mg PO Q8H tab 02/07/22 Docusate Sodium 100Mg Capsule 100 mg PO BID cap 02/07/22 [Colace 100Mg Capsule] Ibuprofen [Motrin] 600 mg PO Q6H tab 02/07/22 oxyCODONE [Roxicodone] 5 mg PO Q4HR PRN 3 Days #14 tab 02/07/22 - PHYSICAL EXAM AT DISCHARGE General Appearance: positive: No acute distress Respiratory: positive: No respiratory distress Cardiovascular: positive: Other (Regular rate) Abdomen: positive: Other (soft, appropriately tender, incision c/d/i with steri strips) Skin: positive: Color nml Extremities: positive: Non-tender Neurologic/Psychiatric: positive: Oriented x3 - LABS Result Diagrams: 02/06/22 05:20 02/04/22 22:00 - QUALITY (Female Hip Fx Only) Was patient sent home on osteoporosis medication?: No - FOLLOW UP Follow Up: Follow up with Lana Phillips CNM as scheduled 02/11. May follow up at OB as needed. - TIME SPENT Time Spent in Discharge (Minutes): 30"
== END 2022-02-07 14:02 | disposition home or self-care (01) | DRG 788 ==
LOC: WFO 20:24 → FBP 20:51 → WFO 21:53 → FBP 21:53
PROVIDERS: ADMIT Nurse Practitioner Obstetrics & Gynecology; ATTEND Obstetrics & Gynecology
PROC: 10907ZC Drainage of Amniotic Fluid, Therapeutic from Products of Conception, Via Natural or Artificial Opening (ICD-10-PCS; 2022-02-05)
PROC: 10D00Z1 Extraction of Products of Conception, Low, Open Approach (ICD-10-PCS; principal; 2022-02-05 07:45)
DX: O99.824 Streptococcus B carrier state complicating childbirth (principal); O77.0 Labor and delivery complicated by meconium in amniotic fluid; O76 Abnormality in fetal heart rate and rhythm complicating labor and delivery; Z3A.40 40 weeks gestation of pregnancy; Z37.0 Single live birth; Z11.3 Encounter for screening for infections with a predominantly sexual mode of transmission; Z11.4 Encounter for screening for human immunodeficiency virus [HIV]; Z62.810 Personal history of physical and sexual abuse in childhood; Z62.811 Personal history of psychological abuse in childhood; Z79.82 Long term (current) use of aspirin; Z82.49 Family history of ischemic heart disease and other diseases of the circulatory system
CPT/HCPCS: 36415; 80053; 82570; 84156; 85025; 86592; 86762; 86803; 86850; 86900; 86901; 87340; 87389; 99215; A9270; J0131; J2274; J2795; J7120; 59025

== ENCOUNTER 2022-02-11 14:02 | Emergency (ER) | payer OTHER ==
[2022-02-11 15:25] LABS: BASOPHILS % (AUTO) 0.2 %; EOSINOPHILS # (AUTO) 0.1 10^3/uL (0.0-0.7); EOSINOPHILS % (AUTO) 1.1 %; HCT - HEMATOCRIT 28.8 % (37.0-47.0); HGB - HEMOGLOBIN 8.9 g/dL (12.0-16.0); LYMPHOCYTES % (AUTO) 21.6 %; MEAN CORPUSCULAR HEMOGLOBIN 27.4 pg (27.0-31.0); MEAN CORPUSCULAR HGB CONC 30.9 g/dL (32.0-36.0); MEAN CORPUSCULAR VOLUME 88.6 fL (81.0-99.0); MEAN PLATELET VOLUME 9.6 fL (7.9-10.8); MONOCYTES # (AUTO) 0.8 10^3/uL (0.0-1.0); MONOCYTES % (AUTO) 8.3 %; NEUTROPHILS # (AUTO) 6.1 10^3/uL (1.5-6.6); NEUTROPHILS % (AUTO) 66.6 %; PLT - PLATELET COUNT 313 10^3/uL (130-450); RED BLOOD COUNT 3.25 10^6/uL (4.20-5.40); RED CELL DISTRIBUTION WIDTH 13.9 % (12.0-15.0); WHITE BLOOD COUNT 9.1 x10^3/uL (4.8-10.8)
[2022-02-11] MEDS ORDERED: SALINE ENEMA 133 ML BOTTLE RC STA (15:26)
--- NOTE | 2022-02-11 15:30 | ED Physician Documentation ---
History of Present Illness - Stated complaint Stated Complaint: SEVERE ABD PX - Chief complaint Chief Complaint: Abd Pain - Additonal information Additional information: 26-year-old female who is 6 days post delivery of her first child presents to the emergency department for 10 days of constipation. She reports that she has a lifelong history of constipation and usually has to force it out. She is hesitant to eat or drink because she is afraid that bearing down with defecation will harm her incision. She has no fevers. No vomiting. Scant amount of vaginal bleeding. incision is clean dry intact without any drainage. Her nurse health actuary advised her to come to the ER for evaluation of constipation. Patient reports that she is taking MiraLAX and milk of magnesia daily without results. Review of Systems Constitutional: reports: Reviewed and negative Ears: reports: Reviewed and negative Throat: reports: Reviewed and negative Cardiac: reports: Reviewed and negative Respiratory: reports: Reviewed and negative GI: reports: Constipation : reports: Reviewed and negative PD PAST MEDICAL HISTORY - Past Medical History Cardiovascular: None Respiratory: None Neuro: None Endocrine/Autoimmune: None GI: None : None Derm: None - Present Medications Home Medications: Ambulatory Orders Medication Instructions Recorded Confirmed Acetaminophen [Tylenol] 1,000 mg PO Q8H tab 02/07/22 Docusate Sodium 100Mg Capsule 100 mg PO BID cap 02/07/22 [Colace 100Mg Capsule] Ibuprofen [Motrin] 600 mg PO Q6H tab 02/07/22 oxyCODONE [Roxicodone] 5 mg PO Q4HR PRN 3 Days #14 tab 02/07/22 - Allergies Allergies/Adverse Reactions: Allergies Allergy/AdvReac Type Severity Reaction Status Date / Time No Known Drug Allergies Allergy Verified 12/11/21 11:05 - Social History Smoking Status: Never smoker PD ED PE NORMAL - General General: Alert and oriented X 3, No acute distress - HEENT HEENT: PERRL - Neck Neck: Supple, no meningeal sign, No adenopathy - Cardiac Cardiac: RRR, No murmur - Respiratory Respiratory: No respiratory distress, Clear bilaterally - Abdomen Abdomen: Normal bowel sounds, Soft. No: Non tender (Mild tenderness around the surgical incision though not more than expected. incision is intact, no surrounding erythema or drainage.) - Rectal Rectal: Other (Moderate amount of rectal formed stool in the vault. Patient did not tolerate the digital rectal exam) - Back Back: No CVA TTP - Derm Derm: Normal color, Warm and dry, No rash - Extremities Extremities: No deformity - Neuro Neuro: Alert and oriented X 3, manager mechanical 2-12 intact Eye Opening: Spontaneous Motor: Obeys Commands Verbal: Oriented GCS Score: 15 Results - Vitals Vitals: Vital Signs - 24 hr 02/11/22 14:17 Temperature 37.1 C Heart Rate 82 Respiratory 18 Rate Blood Pressure 131/91 H O2 Saturation 100 Oxygen O2 Source Room air - Labs Labs: Laboratory Tests 02/11/22 02/11/22 15:20 15:20 WBC 9.1 RBC 3.25 L Hgb 8.9 L Hct 28.8 L MCV 88.6 MCH 27.4 MCHC 30.9 L RDW 13.9 Plt Count 313 MPV 9.6 Neut # (Auto) 6.1 Lymph # (Auto) 2.0 [place] # (Auto) 0.8 Eos # (Auto) 0.1 Baso # (Auto) 0.0 Absolute Nucleated RBC 0.00 Nucleated RBC % 0.0 Sodium 137 Potassium 4.2 Chloride 105 Carbon Dioxide 24 Anion Gap 8.0 BUN 13 Creatinine 1.0 Estimated GFR (MDRD) 82 L Glucose 67 L Calcium 8.7 Total Bilirubin 0.6 AST 30 ALT 35 Alkaline Phosphatase 103 Total Protein 7.1 Albumin 3.2 Globulin 3.9 Albumin/Globulin Ratio 0.8 L Lipase 24 PD MEDICAL DECISION MAKING - ED course Complexity details: reviewed results, re-evaluated patient, considered differential, d/w patient ED course: 26-year-old female presents emergency department for evaluation of constipation. She is day #6 status post . She has not had a bowel movement now for 10 days. She does have a lifelong history of constipation. Despite taking MiraLAX and milk of magnesia at home no bowel movements. Sent here by her health actuary. On exam she has a nontender abdomen. There is a little tenderness as 1 would expect around a incision but not more so than expected. The incision itself is clean and intact without drainage or erythema. CBC and electrolytes today in the emergency department were without acute worrisome findings. I did do a digital rectal exam and found a moderate amount of stool within the rectal vault that was hard. She was administered a fleets enema and after time was able to have a large healthy bowel movement and is feeling better. Given lack of fever or electrolyte and CBC derangement with no worrisome findings on the abdominal exam we did defer CT imaging. She is discharged home in Stable condition. Emergent return precautions discussed Departure - Departure Disposition: 01 Home, Self Care Clinical Impression: Constipation Qualifiers: Constipation type: unspecified constipation type Qualified Code(s): K59.00 - Constipation, unspecified Condition: Stable Record reviewed to determine appropriate education?: Yes Instructions: ED Constipation Comments: You are seen today in the emergency department because you have had constipation for 10 days. You are now 6 days . Your surgical incision looks good and it is okay to bear down a little bit to defecate. We did give you a fleets enema which seems to have allowed you to adequately move your bowels. You can use fleets enemas at home and these are available [id number]. I recommend that you markedly increase your water intake. If at any point you have worsening symptoms, develop any fevers, uncontrolled vomiting then please return immediately to the ER.
[2022-02-11 16:24] LABS: ALBUMIN 3.2 g/dL (3.2-5.5); ALBUMIN/GLOBULIN RATIO 0.8 (1.0-2.2); BILIRUBIN,TOTAL 0.6 mg/dL (0.2-1.0); CALCIUM 8.7 mg/dL (8.5-10.3); POTASSIUM 4.2 mmol/L (3.5-5.0); TOTAL PROTEIN 7.1 g/dL (6.7-8.2)
[2022-02-11 17:46] VITALS: BP 121/76
[2022-02-11 17:52] LABS: BILIRUBIN,URINE NEGATIVE (NEGATIVE); GLUCOSE, URINE (UA) NEGATIVE (NEGATIVE); KETONES,URINE (UA) TRACE mg/dL (NEGATIVE); LEUKOCYTE ESTERASE, URINE NEGATIVE (NEGATIVE); NITRITE,URINE NEGATIVE (NEGATIVE); OCCULT BLOOD,URINE LARGE (NEGATIVE); PH,URINE 7.5 PH (5.0-7.5); PROTEIN,URINE NEGATIVE (NEGATIVE); UROBILINOGEN,URINE 0.2 (NORMAL) E.U./dL (NORMAL)
[2022-02-11 17:53] LABS: CLARITY,URINE CLEAR (CLEAR); HCG UR QUAL NEGATIVE
[2022-02-11 18:00] LABS: BACTERIA,URINE Rare /HPF (None Seen); SQUAMOUS EPITHELIAL CELL,UR FEW Squamous (<= Few)
== END 2022-02-11 18:04 | disposition home or self-care (01) ==
LOC: ED 14:02
DX: O90.89 Other complications of the puerperium, not elsewhere classified (principal); K59.00 Constipation, unspecified
CPT/HCPCS: 36415; 80053; 81001; 81025; 83690; 85025; 99282; 99283; A9270; 81003; 87086

== ENCOUNTER 2022-11-25 19:36 | Emergency (ER) | payer OTHER ==
[2022-11-25 19:46] VITALS: O2SAT 98
--- NOTE | 2022-11-25 20:04 | ED Physician Documentation ---
History of Present Illness - Stated complaint Stated Complaint: ACHES, SORE THROAT - Chief complaint Chief Complaint: General - History obtained from History obtained from: Patient - Additonal information Additional information: Previously healthy 27-year-old woman got acutely ill this morning with fever, body aches, runny nose and dry throat and dry cough. She took emergency prior to arrival. Cough drops as well. PD PAST MEDICAL HISTORY - Past Medical History Cardiovascular: None Respiratory: None Neuro: None Endocrine/Autoimmune: None GI: None : None Derm: None - Present Medications Home Medications: Ambulatory Orders Medication Instructions Recorded Confirmed Acetaminophen [Tylenol] 1,000 mg PO Q8H tab 02/07/22 Docusate Sodium 100Mg Capsule 100 mg PO BID cap 02/07/22 [Colace 100Mg Capsule] Ibuprofen [Motrin] 600 mg PO Q6H tab 02/07/22 oxyCODONE [Roxicodone] 5 mg PO Q4HR PRN 3 Days #14 tab 02/07/22 Ibuprofen [Motrin] 600 mg PO Q6H PRN #30 tab 11/25/22 - Allergies Allergies/Adverse Reactions: Allergies Allergy/AdvReac Type Severity Reaction Status Date / Time No Known Drug Allergies Allergy Verified 11/25/22 19:40 - Social History Smoking Status: Never smoker PD ED PE NORMAL - Vitals Vital signs reviewed: Yes (Febrile and tachycardic) - General General: Alert and oriented X 3, No acute distress - HEENT HEENT: Ears normal, Pharynx benign - Neck Neck: Supple, no meningeal sign, No bony TTP - Respiratory Respiratory: No respiratory distress, Clear bilaterally - Abdomen Abdomen: Non tender - Derm Derm: No rash - Neuro Neuro: Alert and oriented X 3, Normal speech Results - Vitals Vitals: Vital Signs - 24 hr 11/25/22 11/25/22 19:40 19:44 Temperature 38.1 C H Heart Rate 124 H 110 H Respiratory 18 16 Rate Blood Pressure 130/70 130/67 O2 Saturation 98 98 Oxygen O2 Source Room air - Labs Labs: Laboratory Tests 11/25/22 11/25/22 19:55 20:34 Nasal Adenovirus (PCR) NOT DETECTED Nasal B. parapertussis DNA (PCR) NOT DETECTED Nasal Coronavir 229E PCR NOT DETECTED Nasal Coronavir HKU1 PCR NOT DETECTED Nasal Coronavir NL63 PCR NOT DETECTED Nasal Coronavir OC43 PCR NOT DETECTED Nasal Enterovir/Rhinovir PCR NOT DETECTED Nasal Influenza B PCR NOT DETECTED Nasal Influenza A PCR NOT DETECTED Nasal Parainfluen 1 PCR NOT DETECTED Nasal Parainfluen 2 PCR NOT DETECTED Nasal Parainfluen 3 PCR NOT DETECTED Nasal Parainfluen 4 PCR NOT DETECTED Nasal RSV (PCR) NOT DETECTED Nasal B.pertussis DNA PCR NOT DETECTED Nasal C.pneumoniae (PCR) NOT DETECTED Alfonso Human Metapneumo PCR NOT DETECTED Nasal M.pneumoniae (PCR) NOT DETECTED Nasal SARS-CoV-2 (PCR) DETECTED A Group A Strep Rapid Negative PD Medical Decision Making - ED course ED course: Subsequent to discharge her COVID test became positive and she was called and notified by the nurse. Departure - Departure Disposition: Home, Self Care Clinical Impression: Viral syndrome Condition: Good Record reviewed to determine appropriate education?: Yes Instructions: ED Viral Syndrome Prescriptions: Ibuprofen [Motrin] 600 mg PO Q6H PRN #30 tab PRN Reason: Pain Comments: Your strep test is negative. You should take an anti-inflammatory for the symptoms and drink plenty fluids and stay home. There is a viral panel pending, this will include COVID as well as other viral etiologies. We will call you sometime overnight if your COVID test is positive. If your COVID test is positive you need to quarantine for 10 days, if it is negative probably off work through Thursday. Return if worse. Forms: Activity restrictions Discharge Date/Time: 11/25/22 20:42
[2022-11-25] MEDS ORDERED: IBUPROFEN 600 MG TABLET PO STA (20:05)
[2022-11-25 20:13] LABS: RAPID STREP SCREEN Negative (Negative)
[2022-11-25 20:51] VITALS: BP 130/67
[2022-11-25 21:33] LABS: CORONAVIRUS 229E-RESP PCR NOT DETECTED; CORONAVIRUS HKU1-RESP PCR NOT DETECTED; CORONAVIRUS NL63-RESP PCR NOT DETECTED; CORONAVIRUS OC43-RESP PCR NOT DETECTED
[2022-11-25 21:34] LABS: B. PARAPERTUSSIS- RESP PCR PAN NOT DETECTED; B. PERTUSSIS- RESP PCR PANEL NOT DETECTED; C. PNEUMONIAE- RESP PCR PANEL NOT DETECTED; HUMAN METAPNEUMOVIRUS NOT DETECTED; INFLUENZA A- RESP PCR PANEL NOT DETECTED; INFLUENZA B - RESP PCR PANEL NOT DETECTED; M. PNEUMONIAE- RESP PCR PANEL NOT DETECTED; PARAINFLUENZA VIRUS 1 NOT DETECTED; PARAINFLUENZA VIRUS 2 NOT DETECTED; PARAINFLUENZA VIRUS 3 NOT DETECTED; PARAINFLUENZA VIRUS 4 NOT DETECTED; RHINOVIRUS/ENTEROVIRUS NOT DETECTED; RSV- RESP PCR PANEL NOT DETECTED
[2022-11-25 21:35] LABS: SARS-CoV-2 -RESP PCR PANEL DETECTED
== END 2022-11-25 20:42 | disposition home or self-care (01) ==
LOC: ED 19:36
DX: U07.1 COVID-19 (principal); B34.9 Viral infection, unspecified
CPT/HCPCS: 87070; 87430; 87633; 99283; A9270

== ENCOUNTER 2023-01-26 11:30 | Outpatient (CLI) | payer OTHER ==
[2023-01-26 18:15] LABS: BASOPHILS % (AUTO) 0.5 %; EOSINOPHILS # (AUTO) 0.3 10^3/uL (0.0-0.7); EOSINOPHILS % (AUTO) 5.6 %; HCT - HEMATOCRIT 38.1 % (37.0-47.0); HGB - HEMOGLOBIN 12.2 g/dL (12.0-16.0); LYMPHOCYTES # (AUTO) 2.5 10^3/uL (1.5-3.5); MEAN CORPUSCULAR HEMOGLOBIN 28.6 pg (27.0-31.0); MEAN CORPUSCULAR VOLUME 89.4 fL (81.0-99.0); MEAN PLATELET VOLUME 11.6 fL (7.9-10.8); MONOCYTES # (AUTO) 0.4 10^3/uL (0.0-1.0); MONOCYTES % (AUTO) 7.4 %; NEUTROPHILS # (AUTO) 2.2 10^3/uL (1.5-6.6); NEUTROPHILS % (AUTO) 40.3 %; PLT - PLATELET COUNT 285 10^3/uL (130-450); RED BLOOD COUNT 4.26 10^6/uL (4.20-5.40); RED CELL DISTRIBUTION WIDTH 12.8 % (12.0-15.0); WHITE BLOOD COUNT 5.5 x10^3/uL (4.8-10.8)
[2023-01-26 18:42] LABS: ALBUMIN 4.2 g/dL (3.2-5.5); ALBUMIN/GLOBULIN RATIO 1.6 (1.0-2.2); ALKALINE PHOSPHATASE 47 IU/L (42-121); ALT ALANINE AMINOTRANSFERASE 12 IU/L (10-60); AST ASPARTATE AMINOTRANSFERASE 14 IU/L (10-42); BILIRUBIN,TOTAL 0.8 mg/dL (0.2-1.0); BUN - BLOOD UREA NITROGEN 12 mg/dL (6-20); CALCIUM 8.9 mg/dL (8.5-10.3); CARBON DIOXIDE - CO2 25 mmol/L (21-32); CHLORIDE 107 mmol/L (101-111); CRP - C-REACTIVE PROTEIN < 0.5 mg/dL (<0.5); GFR - MDRD 81 (>89); GLUCOSE 82 mg/dL (74-104); LIPASE 21 U/L (11-82); SODIUM 138 mmol/L (135-145); TOTAL PROTEIN 6.9 g/dL (6.4-8.9)
== END 2023-01-26 11:45 | disposition home or self-care (01) ==
LOC: LAB.N 11:30
PROVIDERS: ATTEND Registered Nurse
DX: R19.7 Diarrhea, unspecified (principal); R10.9 Unspecified abdominal pain
CPT/HCPCS: 36415; 80053; 83690; 85025; 86140